=== PATIENT | male | born 2005 | race Caucasian/White ===

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

== ENCOUNTER 2024-07-01 17:52 | Emergency (ER) | payer OTHER, SELFPAY ==
[2024-07-01 18:01] VITALS: BP 138/77; PULSE 94; RESP 16; TEMP 36.3; O2SAT 97; BMI 34.9
--- NOTE | 2024-07-01 18:11 | ED_ITS ---
HPI - General Adult General Chief complaint: Upper Respiratory Symptoms Stated complaint: Knee pain, headache, dizziness Time Seen by Provider: 07/01/24 19:05 Source: patient Mode of arrival: ambulatory Limitations: no limitations History of Present Illness HPI narrative: Patient is a 19-year-old male with a reported past medical history of asthma presenting to emergency department for evaluation of a nonproductive cough, intermittent headache, nasal congestion with postnasal drip sore throat, body aches pain particularly to the bilateral lower extremities (knees and thighs). Symptom onset 1 day ago. Denies shortness of breath or difficulty breathing, has not needed to use as not tried any OTC medications. Related Data Previous Rx's ?Medication ?Instructions ?Recorded albuterol sulfate 90 mcg/actuation 1 inh inhalation QID PRN shortness 08/11/22 aerosol inhaler of breath or wheezing #8.5 grams azithromycin 250 mg tablet See Rx Instructions PO .COMPLEX #6 08/11/22 tabs codeine 10 mg-guaifenesin 100 mg/5 5 ml PO Q6H PRN cold symptoms #120 08/11/22 mL oral liquid (Guaifenesin AC) mL prednisone 20 mg tablet 40 mg (2 x 20 mg) PO DAILY 08/11/22 inflammation 5 days #10 tabs Allergies Allergy/AdvReac Type Severity Reaction Status Date / Time No Known Allergies Allergy Verified 07/01/24 18:04 Review of Systems Review of Systems: Yes all other systems are reviewed and are negative [facility] Past Medical History Attestation statement: The following information was validated with the patient. Source: old records reviewed Social History Social History Advance Directives: No Advance Directives Information Provided: Yes Do you have a plan to hurt others: No Plan Physical Exam ED Vital Signs: Vital Signs - 24 hr 07/01/24 18:01 07/01/24 20:19 Temperature 97.3 F 97.7 F Pulse Rate 94 77 Respiratory Rate 16 16 Blood Pressure 138/77 121/64 Pulse Oximetry 97 98 Oxygen Delivery Method Room Air Room Air BMI result Body Mass Index 34.9 Appearance: Alert.?Oriented to person, place and time. No acute di stress.?Normal affect. Eyes: Pupils equal, round and reactive to light.? EOMI No nystagmus. ENT: Pharynx mildly erythematous. No hypertrophy or exudates. No trismus. No drooling. Uvula is midline. Neck: Normal inspection.? Neck supple.??No cervical adenopathy CVS: Heart sounds normal. Normal heart rate and rhythm.? Pulses normal.?? Respiratory: No respiratory distress.? Lung sounds clear to auscultation bilaterally?? Abdomen: Soft and non-tender. Normoactive bowel sounds. Skin: Skin warm and dry.? Normal skin color.? Extremities: No lower extremity edema.? No calf ttp?no obvious deformities to the bilateral knees, no erythema warmth or effusions. Full range of motion to the lower extremities. 2+ DP/PT pulse bilaterally. Neuro: Moves all extremities spontaneously. Sensation intact bilaterally. CN II- XII intact. No focal neuro deficits. Ambulates with normal steady gait. Course Course Course Narrative: This is a rapid medical exam performed by Candy Vang PA-C. The patient is a 19-year-old male with a history of asthma, who presents with cough and cold symptoms x1 day. Associated headache, dizziness, nasal congestion, postnasal drip, sore throat and knee pain. On exam, the patient has nonlabored respirations, he is well in appearance. We will order a viral panel. The pat ient is stable and can return to the waiting room pending his full assessment. Medical Decision Making Medical Decision Making MDM Narrative: Patient is a this is a 19-year-old male presenting for evaluation of upper respiratory symptoms. COVID-19 /influenza/RSV testing negative. Not consistent with RPA/CLINICAL SUPPORT NURSE. At this time history and physical exam not consistent with ACS/PE/pneumonia. Does not appear consistent with acute asthma exacerbation. Suspect this is likely a viral illness Well-appearing, nontoxic, afebrile, no tachycardia or tachypnea/hypoxia. Speaking clear full sentences, ambulatory with steady gait. Discussed conservative treatment including rest, hydration, Tylenol/ibuprofen as needed for fever and body aches, saline nasal spray, humidifier, [id number] cold medication. Advised to follow-up with primary care provider as needed, discussed reasons to return back to the emergency department. All questions were answered. Patient discharged home in stable condition. Provided with a return to work/school note. Offered Tamiflu Offered monoclonal antibody Differential Diagnosis Differential Diagnoses: The differential diagnosis associated with the presentation includes ( See narrative above) Admission/Observation Consideration of admission/observation: Escalation of care including admission/observation considered ( see narrative above) Lab Data MDM Lab Attestation statement: I reviewed the patient's lab results. ( see narrative above) Labs: Lab Results 07/01/24 Range/Units 18:35 Influenza Type A (PCR) NEGATIVE (Negative) Influenza Type B (PCR) NEGATIVE (Negative) RSV RNA Qual (PCR) NEGATIVE (Negative) SARS-CoV-2 RNA (RT-PCR) NEGATIVE (Negative) Independent Historian Clinical information obtained from an independent historian. History obtained from or confirmed by: Parent External Record Review External record reviewed: Outpatient record Prescription Management I considered prescription management with: Pain Medication ( acetaminophen/ibuprofen) Discharge Plan Discharge Clinical Impression: Upper respiratory infection Patient Disposition: Home, Self-Care Instructions: Upper Respiratory Infection (ED), Viral Syndrome (ED) Additional Instructions: Be sure to rest, stay well hydrated drinking plenty of fluids, eat small frequent meals. Tylenol/ibuprofen can be used as needed for fever/pain. [id number] cold medications may be helpful as well for symptoms. Saline nasal spray, humidifier may be helpful for nasal congestion. You may return to the emergency department with any new or worsening symptoms or concerns. Follow-up with your primary care provider as needed. Should remain out of school/ work until symptoms have resolved and have been without a fever for 24 hours without the use of Tylenol or ibuprofen. Prescriptions: No Action azithromycin 250 mg tablet See Rx Instructions .ROUTE .COMPLEX Qty: 6 0RF Rx Instructions: For 250 mg dose pack: take 500 mg today (day 1), then 250 mg for 4 days (days 2-5) prednisone 20 mg tablet 40 mg PO DAILY 5 Days Qty: 10 0RF albuterol sulfate 90 mcg/actuation HFA aerosol inhaler 1 inh inhalation QID PRN (Reason: shortness of breath or wheezing) Qty: 8.5 0RF codeine-guaifenesin [Guaifenesin AC] 10-100 mg/5 mL liquid 5 ml PO Q6H PRN (Reason: cold symptoms) Qty: 120 0RF Referrals: Physician,Unknown J [Primary Care Provider] - Stand Alone Forms: Work/School Release Print Language: Hungarian
[2024-07-01 19:25] LABS: Influenza A PCR NEGATIVE (Negative); Influenza B PCR NEGATIVE (Negative); Resp Syncy Virus RNA Qual PCR NEGATIVE (Negative); SARS COV2 PCR INHOUSE NEGATIVE (Negative)
[2024-07-01 20:19] VITALS: BP 121/64; PULSE 77; RESP 16; TEMP 36.5; O2SAT 98
[2024-07-01 21:14] VITALS: BP 121/64; PULSE 77; RESP 16; TEMP 36.5; O2SAT 98
== END 2024-07-01 21:15 | disposition home or self-care (01) ==
PROVIDERS: Physician Assistant Medical; Emergency Provider Emergency Medicine Emergency Medical Services
DX: J06.9 Acute upper respiratory infection, unspecified (principal); R09.81 Nasal congestion; R05.9 Cough, unspecified; M79.10 Myalgia, unspecified site; Z03.818 Encounter for observation for suspected exposure to other biological agents ruled out
CPT/HCPCS: 0241U; 99283

== ENCOUNTER 2024-07-11 00:23 | Emergency (ER) | payer OTHER, SELFPAY ==
[2024-07-11 00:38] VITALS: BP 134/84; PULSE 98; RESP 18; TEMP 36.7; O2SAT 98; BMI 33.4
[2024-07-11 02:22] LABS: MANUAL DIFF FLAG NO
[2024-07-11 02:24] LABS: Basophils Absolute Auto 0.1 X10*3/uL (0.0-0.2); Basophils Percent Auto 0.7 % (0-2); Eosinophils Absolute Auto 0.2 X10*3/uL (0.0-0.4); Eosinophils Percent Auto 2.2 % (0-4); Hematocrit 46.9 % (42.0-52.0); Hemoglobin 16.4 g/dl (14.0-18.0); Imm Gran Abs Auto 0.02 X10*3/uL (0.00-0.03); Imm Gran Pct Auto 0.2 % (0.0-0.4); Lymphocytes Absolute Auto 3.2 X10*3/uL (1.2-4.9); Mean Corpuscular Hemoglobin 28.8 pg (27.0-33.0); Mean Corpuscular Volume 82.4 fL (80.0-98.0); Mean Platelet Volume 12.2 fL (9.4-12.4); Monocytes Absolute Auto 0.7 X10*3/uL (0.1-1.2); Neutrophils Absolute Auto 4.6 x10*3/uL (2.0-8.3); Neutrophils Percent Auto 52.9 % (45-73); Platelet Count 228 X10*3/uL (160-400); Red Blood Count 5.69 X10*6/uL (4.60-5.80); Red Cell Distribution Width 12.7 % (11.0-16.0); White Blood Count 8.7 X10*3/uL (4.8-10.8)
[2024-07-11 02:33] LABS: Appearance Urine Clear; Color Urine Dark Yellow; Glucose Urine UA Negative (Negative); Leukocyte Esterase Urine Negative (Negative); Nitrite Urine Negative (Negative); PH 5.5 (5.0-9.0); Specific Gravity - Urine 1.025 (1.005-1.025); Urine Blood Negative (Negative); Urine Ketones 40 mg/dL (Negative); Urine Protein Trace mg/dL (Neg-Trace)
[2024-07-11 02:48] LABS: Alanine Aminotransferase 67 U/L (0-40); Anion Gap 17 (12-20); Aspartate Amino Transferase 35 U/L (5-37); Bilirubin Total 1.1 mg/dL (0.0-1.0); Blood Urea Nitrogen 13 mg/dL (9-16); Calcium 10.1 mg/dL (8.4-10.2); Carbon Dioxide 25 mmol/L (22-29); Chloride 105 mmol/L (96-108); Creatinine Clr Calc Pharmacy 132.9; Estimated Glomerular Filt Rate > 60; Glucose Random 87 mg/dL (60-115); Lipase 15 U/L (8-78); Potassium 4.3 mmol/L (3.3-5.1); Sodium 143 mmol/L (135-145); Total Protein 8.3 g/dL (6.5-8.0)
[2024-07-11 03:11] LABS: Alkaline Phosphatase 72 U/L (39-117)
[2024-07-11 04:00] VITALS: BP 127/88; PULSE 85; RESP 20; TEMP 36.9; O2SAT 99
--- NOTE | 2024-07-11 04:57 | ED.ABDPAIN ---
HPI - Abdominal Pain General Chief Complaint: Abdominal Pain Stated Complaint: abdominal pain Time Seen by Provider: 07/11/24 04:41 Source: patient Mode of arrival: ambulatory Limitations: no limitations History of Present Illness ED Provider: Dr. Pack HPI narrative: Patient is a 19 yo male with no medical history who presents with lower abdominal pain after eating at work. No fever, no nausea or vomiting. Related Data Previous Rx's ?Medication ?Instructions ?Recorded albuterol sulfate 90 mcg/actuation 1 inh inhalation QID PRN shortness 08/11/22 aerosol inhaler of breath or wheezing #8.5 grams azithromycin 250 mg tablet See Rx Instructions PO .COMPLEX #6 08/11/22 tabs codeine 10 mg-guaifenesin 100 mg/5 5 ml PO Q6H PRN cold symptoms #120 08/11/22 mL oral liquid (Guaifenesin AC) mL prednisone 20 mg tablet 40 mg (2 x 20 mg) PO DAILY 08/11/22 inflammation 5 days #10 tabs naproxen 500 mg tablet (Naprosyn) 500 mg PO BID #20 tabs 07/11/24 Allergies Allergy/AdvReac Type Severity Reaction Status Date / Time No Known Allergies Allergy Verified 07/11/24 00:43 Review of Systems Review of Systems Yes all other systems are reviewed and are negative Denies Sensory deficit (Neuro) PMFSH Social History Social History Smoked in Last 30 Days: No Use of substances other than those prescribed or required for medical reasons: No Advance Directives: No Advance Directives Information Provided: Yes Do you have a plan to hurt others: No Plan Physical Exam ED Vital Signs: Vital Signs - 24 hr 07/11/24 00:38 07/11/24 04:00 07/11/24 05:02 Temperature 98.1 F 98.4 F 98.0 F Pulse Rate 98 85 88 Respiratory Rate 18 20 15 Blood Pressure 134/84 127/88 120/77 Pulse Oximetry 98 99 97 Oxygen Delivery Method Room Air Room Air Room Air 07/11/24 05:04 Temperature 98.0 F Pulse Rate 88 Respiratory Rate 15 Blood Pressure 120/77 Pulse Oximetry 97 Oxygen Delivery Method Room Air BMI result Body Mass Index 33.4 Const General: healthy appearing Nutritional Appearance: average body habitus Orientation/consciousness: oriented to person and patient oriented x3 Limitations: no limitations HENMT Head: Yes normal to inspection Ears: external ears normal General nose exam: Normal external nose present Mouth: Normal oral and palatal mucosa present and oropharynx normal Throat: Yes posterior oropharynx normal Eyes General: appearance normal, both eyes and all related structures Neck Neck: Yes normal visual inspection Chest Chest palpation & inspection: normal inspection of the chest Resp Auscultation: clear to auscultation bilaterally Cardio Jugular venous distension: no JVD Rate: regular rate Rhythm: regular rhythm Heart sounds: S1 normal heart sound present and S2 normal heart sound present GI Other: mild left lower to suprapubic pain, no guarding nor rebound Auscultation: normal bowel sounds General: Yes no CVA tenderness Back/Spine/Pelvis Back: no CVA tenderness Skin General skin exam: no rashes or lesions noted Neuro General: oriented to person and patient oriented x3 Cranial nerves: Yes CN's II-XII intact bilaterally Motor exam (neuro): 5/5 motor strength present throughout Sensory Exam: No Sensory deficit (Neuro) Extrem General: Yes normal to inspection Psych Appearance: grossly normal Course Reevaluation(s) Reevaluation #1: normal WBC, normal labs, urine normal. Will treat pain with antiinflammatories Time: 05:01 Medical Decision Making Differential Diagnosis Differential Diagnoses: The differential diagnosis associated with the presentation includes (appendicitis, UTI, diverticulitis, colic) Admission/Observation Consideration of admission/observation: Escalation of care including admission/observation considered (upon arrival patient considered for admission) Lab Data 07/11/24 02:18 07/11/24 02:18 Labs: Lab Results 07/11/24 07/11/24 Range/Units 02:18 02:26 WBC 8.7 (4.8-10.8) X10*3/uL RBC 5.69 (4.60-5.80) X10*6/uL Hgb 16.4 (14.0-18.0) g/dl Hct 46.9 (42.0-52.0) % MCV 82.4 (80.0-98.0) fL MCH 28.8 (27.0-33.0) pg MCHC 35.0 (31.0-36.0) g/dl RDW 12.7 (11.0-16.0) % Plt Count 228 (160-400) X10*3/uL MPV 12.2 (9.4-12.4) fL Immature Gran % (Auto) 0.2 (0.0-0.4) % Neut % (Auto) 52.9 (45-73) % Lymph % (Auto) 36.0 (20-40) % [place] % (Auto) 8.0 (2-11) % Eos % (Auto) 2.2 (0-4) % Baso % (Auto) 0.7 (0-2) % Lymph # (Auto) 3.2 (1.2-4.9) X10*3/uL [place] # (Auto) 0.7 (0.1-1.2) X10*3/uL Eos # (Auto) 0.2 (0.0-0.4) X10*3/uL Baso # (Auto) 0.1 (0.0-0.2) X10*3/uL Abs Immat Gran (auto) 0.02 (0.00-0.03) X10*3/uL Absolute Neuts (auto) 4.6 (2.0-8.3) x10*3/uL Absolute Nucleated RBC 0.000 (0.0-0.012) X10*3/uL Nucleated RBC % (auto) 0.0 (0.0-0.2) /100WBC Sodium 143 (135-145) mmol/L Potassium 4.3 (3.3-5.1) mmol/L Chloride 105 (96-108) mmol/L Carbon Dioxide 25 (22-29) mmol/L Anion Gap 17 (12-20) BUN 13 (9-16) mg/dL Creatinine 1.07 (0.5-1.4) mg/dL Estim Creat Clear Calc 132.9 Estimated GFR > 60 Random Glucose 87 (60-115) mg/dL Calcium 10.1 (8.4-10.2) mg/dL Total Bilirubin 1.1 H (0.0-1.0) mg/dL AST 35 (5-37) U/L ALT 67 H (0-40) U/L Alkaline Phosphatase 72 (39-117) U/L Total Protein 8.3 H (6.5-8.0) g/dL Albumin 5.0 (3.5-5.0) g/dL Lipase 15 (8-78) U/L Urine Color Dark Yellow Urine Appearance Clear Urine pH 5.5 (5.0-9.0) Ur Specific [place] 1.025 (1.005-1.025) Urine Protein Trace (Neg-Trace) mg/dL Urine Glucose (UA) Negative (Negative) mg/dL Urine Ketones 40 (Negative) mg/dL Urine Blood Negative (Negative) Urine Nitrite Negative (Negative) Ur Leukocyte Esterase Negative (Negative) Independent Historian Clinical information obtained from an independent historian. History obtained from or confirmed by: Parent Tests considered The following testing was considered but not selected: CT of abdomen considered but labs WBC normal, exam soft nonfocal Prescription Management I considered prescription management with: Antibiotic (no UTI seen, no evidence of diverticulitis) Medications Administered Discontinued Medications Generic Name Dose Route Start Last Admin Trade Name Freq PRN Reason Stop Dose Admin Naproxen 500 mg 07/11/24 04:57 07/11/24 05:01 Naproxen 500 Mg Tablet PO 07/11/24 04:58 500 mg ONCE ONE Administration Discharge Plan Discharge Clinical Impression: Abdominal pain Patient Disposition: Home, Self-Care Instructions: Abdominal Pain (ED) Prescriptions: New naproxen [Naprosyn] 500 mg tablet 500 mg PO BID Qty: 20 0RF No Action azithromycin 250 mg tablet See Rx Instructions .ROUTE .COMPLEX Qty: 6 0RF Rx Instructions: For 250 mg dose pack: take 500 mg today (day 1), then 250 mg for 4 days (days 2-5) prednisone 20 mg tablet 40 mg PO DAILY 5 Days Qty: 10 0RF albuterol sulfate 90 mcg/actuation HFA aerosol inhaler 1 inh inhalation QID PRN (Reason: shortness of breath or wheezing) Qty: 8.5 0RF codeine-guaifenesin [Guaifenesin AC] 10-100 mg/5 mL liquid 5 ml PO Q6H PRN (Reason: cold symptoms) Qty: 120 0RF Referrals: Physician,Unknown J [Primary Care Provider] - 5 days Interventions: ED Discharge Assessment Last Done: 07/11/24 05:04 Print Language: Yakut
[2024-07-11] MEDS: NaPROXEN 500 MG TABLET PO (05:01)
[2024-07-11 05:02] VITALS: BP 120/77; PULSE 88; RESP 15; TEMP 36.7; O2SAT 97
[2024-07-11 05:04] VITALS: BP 120/77; PULSE 88; RESP 15; TEMP 36.7; O2SAT 97
== END 2024-07-11 05:09 | disposition home or self-care (01) ==
PROVIDERS: Emergency Provider Emergency Medicine
DX: R10.30 Lower abdominal pain, unspecified (principal); Z79.899 Other long term (current) drug therapy
CPT/HCPCS: 36415; 80053; 81003; 83690; 85025; 99283; 99284

== ENCOUNTER 2024-07-15 16:25 | Emergency (ER) | payer OTHER, SELFPAY ==
[2024-07-15 16:49] VITALS: BP 141/86; PULSE 89; RESP 18; TEMP 37; O2SAT 97; BMI 33.5
--- NOTE | 2024-07-15 16:57 | ED.GENADULT ---
HPI - General Adult General Chief complaint: General Medical Stated complaint: Dizziness/ leg pain Time Seen by Provider: 07/15/24 22:05 Source: patient Limitations: language barrier History of Present Illness ED Provider: Candy Vang PA-C HPI narrative: Patient is a 19 year old male with a complaint of b/l villeda pain. Patient states this has been ongoing x3 weeks. It starts at his knee and goes down to the bottom of his villeda. He states that this occurred when he was younger as well, and the provider told him it was growing pains. He did not have any trauma to the knee or villeda, denies skin lesions/rashes, and denies fever/chills. He mentions working long hours and that it gets worse while working. He does a lot of bending and lifting at his job. Patient still able to ambulate. Has not found any alleviating factors. Patient also mentions having a headache since 4pm today. He denies head trauma, visual changes, and other upper respiratory symptoms. Related Data Previous Rx's ?Medication ?Instructions ?Recorded albuterol sulfate 90 mcg/actuation 1 inh inhalation QID PRN shortness 08/11/22 aerosol inhaler of breath or wheezing #8.5 grams azithromycin 250 mg tablet See Rx Instructions PO .COMPLEX #6 08/11/22 tabs codeine 10 mg-guaifenesin 100 mg/5 5 ml PO Q6H PRN cold symptoms #120 08/11/22 mL oral liquid (Guaifenesin AC) mL prednisone 20 mg tablet 40 mg (2 x 20 mg) PO DAILY 08/11/22 inflammation 5 days #10 tabs naproxen 500 mg tablet (Naprosyn) 500 mg PO BID #20 tabs 07/11/24 Allergies Allergy/AdvReac Type Severity Reaction Status Date / Time No Known Allergies Allergy Verified 07/15/24 16:52 Review of Systems Review of Systems: Yes all other systems are reviewed and are negative Constitutional: Constitutional: Denies body ache(s), Denies chills, Denies fatigue, Denies fever(s), Reports headache(s) and Denies weakness Eyes: Eyes: Denies blurry vision, Denies change in vision, Denies eye discharge and Denies eye pain ENT: Denies dizziness, Reports headache(s), Denies post nasal drip, Denies tinnitus and Denies sore throat Cardiovascular: Cardiovascular: Denies Abdominal Distension, Denies chest pain, Denies syncope, Denies leg edema, Denies lightheadedness, Denies palpitations and Denies dyspnea Respiratory: Respiratory: Denies cough and Denies dyspnea Gastrointestinal: Gastrointestinal: Denies abdominal pain, Denies change in bowel habits, Denies constipation, Denies diarrhea, Denies nausea and Denies vomiting Genitourinary: Genitourinary: Denies hematuria, Denies urinary frequency and Denies urinary urgency Musculoskeletal: Musculoskeletal: Denies back pain, Denies deformity, Reports arthralgias (b/l knee), Denies joint swelling, Denies numbness, Denies stiffness and Denies tingling Integumentary/Breasts: Skin/Breast: Denies lesions and Denies rash Neurologic: Denies burning sensations, Denies dizziness, Denies syncope, Reports headache(s), Denies lack of coordination, Denies numbness, Denies tingling and Denies weakness Psychiatric: Psychiatric: Denies homicidal ideation and Denies suicidal ideation Endocrine: Endocrine: Denies fatigue and Denies palpitations [facility] Past Medical History Attestation statement: The following information was validated with the patient. Social History Social History Advance Directives: No Advance Directives Information Provided: No Physical Exam ED Vital Signs: Vital Signs - 24 hr 07/15/24 22:07 07/16/24 00:23 07/16/24 01:39 Temperature 98.3 F 97.9 F 97.9 F Pulse Rate 73 81 81 Respiratory Rate 13 17 17 Blood Pressure 132/71 121/62 121/62 Pulse Oximetry 98 98 98 Oxygen Delivery Method Room Air Room Air Room Air BMI result Body Mass Index 33.5 Const General: cooperative, healthy appearing, comfortable, no acute distress and well developed; No anxious, diaphoretic or ill appearing Nutritional Appearance: obese Orientation/consciousness: patient oriented x3 Limitations: no limitations and language barrier (frisian speaking) [facility] Head: Yes normal to inspection, Yes normocephalic and Yes atraumatic Eyes General: appearance normal, both eyes and all related structures Visual Barrett: normal visual barrett by confrontation Alignment and Position: alignment normal and position normal Periorbital: periorbital findings normal Eyelids: Yes eyelids normal Conjunctivae: conjunctivae normal Sclerae: sclerae normal Corneas: corneas normal Pupils: Equal, round and reactive pupils present EOM: EOMs intact bilaterally Neck Neck: Yes normal visual inspection, Yes full ROM and Yes no meningeal signs Resp Effort & Inspection: normal respiratory effort, able to speak in complete sentences, no audible wheezes, no cough, not labored and no use of accessory muscles Auscultation: clear to auscultation bilaterally Cardio Jugular venous distension: no JVD Rate: regular rate Rhythm: regular rhythm Heart sounds: S1 normal heart sound present and S2 normal heart sound present GI Inspection: Yes normal to inspection and No distended Palpation (GI): Soft to palpation, not firm, nontender, no guarding and not rigid Back/Spine/Pelvis Thoracic/Lumbar Spine: thoracic and lumbar spine normal to inspection Skin General skin exam: no rashes or lesions noted Trauma: no lacerations or abrasions Neuro General: patient oriented x3, moves all extremities, no meningeal signs, no focal motor deficits and CN's II-XI intact bilaterally Cranial nerves: Yes CN's II-XII intact bilaterally, Yes Equal, round and reactive pupils present and Yes Bilaterally intact EOM present Cognition (Neuro): normal cognition Extrem General: Yes normal to inspection, Yes full ROM, Yes capillary refill normal, Yes no joint enlargement, No clubbing, No cyanosis and No edema Right lower extremity: full ROM, no joint enlargement, knee Details: tenderness Location: of the patella and normal ROM; no swelling, no ecchymosis, no deformity and no unusual warmth and lower leg Details: tenderness (villeda); no erythema, no localized swelling, no ecchymosis, no deformity and no unusual warmth; no cyanosis and no edema Left lower extremity: full ROM, no joint enlargement, knee Details: tenderness Location: of the patella and normal ROM; no swelling, no ecchymosis, no deformity and no unusual warmth and lower leg Details: tenderness (villeda) and no edema; no erythema, no localized swelling, no ecchymosis, no deformity and no unusual warmth; no cyanosis and no edema Psych Other: calm and cooperative Appearance: grossly normal Mental Status: mental status grossly normal Speech and movement: Normal speech and movement present and Clear speech present Affect: normal affect Attitude: cooperative Thought process: Normal thought process present Thought content: Normal thought content present Insight: Good insight present (Psych) Judgement: Good judgement present (Psych) Course Course Course Narrative: This is a rapid medical exam performed by Anuel Churchill NP: Additional HPI, ROS, PE not included below will be deferred to primary provider. Patient is a 19-year-old male presenting with complaint of headache, fatigue, dizziness since this morning. Plan: strep and viral swabs Medical Decision Making Medical Decision Making MDM Narrative: I Candy Vang PA-C have personally assessed and manage the patient, Marichuy CASTELLANOS observed and helped to formulate the documentation Patient is a 19 year old male with a complaint of b/l villeda pain. Patient states this has been ongoing x3 weeks. It starts at his knee and goes down to the bottom of his villeda. He states that this occurred when he was younger as well, and the provider told him it was growing pains. He did not have any trauma to the knee or villeda, denies skin lesions/rashes, and denies fever/chills. He mentions working long hours and that it gets worse while working. He does a lot of bending and lifting at his job. Patient still able to ambulate. Has not found any alleviating factors. Patient also mentions having a headache since 4pm today. He denies head trauma, visual changes, and other upper respiratory symptoms. DDx: villeda splints, muscle cramps from electrolyte abnormality, tendonitis, DVT, OA/joint issues, muscle strain/overuse Plan: Given that the patient does repetitive movements at his job, it is possible that he is experiencing tendonitis. It is also possible that he has an electrolyte abnormality, as he c/o muscle cramps as well as headaches. Will assess with CMP. It is also possible that he has OA/joint issues given that his pain begins in the knee and he states it comes from within the bone in his villeda. Given his age, I think OA is unlikely. Patient could be suffering from joint issues, as he was also seen for this when he was a child. Will assess with imaging. Considered DVT, however given the timeline of his complaint, the fact that it is bilateral, and the lack of swelling in the legs, I think this is unlikely. Will defer d-dimer at this time. Also considered villeda splints and muscle strain/overuse, although patient denies walking long distances, running, and hiking, therefore I think this is unlikely. Per Candy Vang PA-C In regard to the dizziness, on my exam, the patient has serous otitis, sent with the instructions for Zyrtec. No nystagmus to suggest vertigo, furthermore, his symptoms are minimal they are currently resolved. In regard to the bilateral knee pain, he has full flexion and extension, there has been no trauma to suggest fracture or dislocation, there was no deformity, there was no overlying erythema, to suggest a septic joint. He is a young healthy individual, he can follow up with his primary care provider, his complaints do not necessitate further emergent evaluation. Screening labs were obtained from triage, there was no underlying organic cause for his dizziness i.e. anemia, dehydration, electrolyte abnormality I have independently reviewed the following tests: Labs: No leukocytosis, not anemic, no electrolyte abnormality, viral panel negative Lab Data 07/15/24 21:37 07/15/24 21:37 Labs: Lab Results 07/15/24 07/15/24 Range/Units 17:55 21:37 WBC 7.8 (4.8-10.8) X10*3/uL RBC 5.68 (4.60-5.80) X10*6/uL Hgb 16.3 (14.0-18.0) g/dl Hct 46.6 (42.0-52.0) % MCV 82.0 (80.0-98.0) fL MCH 28.7 (27.0-33.0) pg MCHC 35.0 (31.0-36.0) g/dl RDW 12.9 (11.0-16.0) % Plt Count 220 (160-400) X10*3/uL MPV 12.3 (9.4-12.4) fL Immature Gran % (Auto) 0.1 (0.0-0.4) % Neut % (Auto) 53.3 (45-73) % Lymph % (Auto) 34.4 (20-40) % Jefferson % (Auto) 8.5 (2-11) % Eos % (Auto) 3.1 (0-4) % Baso % (Auto) 0.6 (0-2) % Lymph # (Auto) 2.7 (1.2-4.9) X10*3/uL Jefferson # (Auto) 0.7 (0.1-1.2) X10*3/uL Eos # (Auto) 0.2 (0.0-0.4) X10*3/uL Baso # (Auto) 0.1 (0.0-0.2) X10*3/uL Abs Immat Gran (auto) 0.01 (0.00-0.03) X10*3/uL Absolute Neuts (auto) 4.1 (2.0-8.3) x10*3/uL Absolute Nucleated RBC 0.000 (0.0-0.012) X10*3/uL Nucleated RBC % (auto) 0.0 (0.0-0.2) /100WBC Sodium 140 (135-145) mmol/L Potassium 4.1 (3.3-5.1) mmol/L Chloride 104 (96-108) mmol/L Carbon Dioxide 26 (22-29) mmol/L Anion Gap 14 (12-20) BUN 11 (9-16) mg/dL Creatinine 0.93 (0.5-1.4) mg/dL Estim Creat Clear Calc 153.0 Estimated GFR > 60 Random Glucose 91 (60-115) mg/dL Calcium 10.2 (8.4-10.2) mg/dL Total Bilirubin 0.8 (0.0-1.0) mg/dL AST 31 (5-37) U/L ALT 70 H (0-40) U/L Alkaline Phosphatase 79 (39-117) U/L Total Protein 7.9 (6.5-8.0) g/dL Albumin 4.7 (3.5-5.0) g/dL Influenza Type A (PCR) NEGATIVE (Negative) Influenza Type B (PCR) NEGATIVE (Negative) RSV RNA Qual (PCR) NEGATIVE (Negative) SARS-CoV-2 RNA (RT-PCR) NEGATIVE (Negative) S. pyogenes GrpA LUIS Negative (Negative) Discharge Plan Discharge Clinical Impression: Dizziness, Bilateral leg pain Patient Disposition: Home, Self-Care Instructions: Dizziness (ED), Leg Pain (ED) Additional Instructions: You had no lab abnormalities, the viral panel was negative. You were found to have fluid in your inner ear, this can cause dizziness. Use [id number] Zyrtec daily for the next 2-3 weeks. In regard to your ongoing leg pain, your exam was unremarkable. You need further outpatient workup by primary care. In the meantime, make sure you have good supportive shoes such as running sneakers, given you are on your feet a lot at work. This should help support your knee joints. Exercise and weight loss are important as well, having extra weight puts strain on your joints. You can use [id number] ibuprofen 600 mg taken every 6 hours as needed for your knee discomfort. Again, you need to make an appointment and follow up with your primary care provider. Prescriptions: No Action azithromycin 250 mg tablet See Rx Instructions .ROUTE .COMPLEX Qty: 6 0RF Rx Instructions: For 250 mg dose pack: take 500 mg today (day 1), then 250 mg for 4 days (days 2-5) prednisone 20 mg tablet 40 mg PO DAILY 5 Days Qty: 10 0RF albuterol sulfate 90 mcg/actuation HFA aerosol inhaler 1 inh inhalation QID PRN (Reason: shortness of breath or wheezing) Qty: 8.5 0RF codeine-guaifenesin [Guaifenesin AC] 10-100 mg/5 mL liquid 5 ml PO Q6H PRN (Reason: cold symptoms) Qty: 120 0RF naproxen [Naprosyn] 500 mg tablet 500 mg PO BID Qty: 20 0RF Stand Alone Forms: Work/School Release Interventions: ED Discharge Assessment Last Done: 07/16/24 01:39 Discharge Date/Time: 07/16/24 01:40 Print Language: Bermudian
[2024-07-15 18:20] LABS: IDNOW Serial# 58CA691E; Strep A Nucleic Acid Negative (Negative)
[2024-07-15 18:39] LABS: Influenza A PCR NEGATIVE (Negative); Influenza B PCR NEGATIVE (Negative); Resp Syncy Virus RNA Qual PCR NEGATIVE (Negative); SARS COV2 PCR INHOUSE NEGATIVE (Negative)
[2024-07-15 21:31] VITALS: BP 130/70; PULSE 87; RESP 20; TEMP 36.8; O2SAT 99
[2024-07-15 21:41] LABS: MANUAL DIFF FLAG NO
[2024-07-15 21:43] LABS: Basophils Absolute Auto 0.1 X10*3/uL (0.0-0.2); Basophils Percent Auto 0.6 % (0-2); Eosinophils Absolute Auto 0.2 X10*3/uL (0.0-0.4); Eosinophils Percent Auto 3.1 % (0-4); Hematocrit 46.6 % (42.0-52.0); Hemoglobin 16.3 g/dl (14.0-18.0); Imm Gran Abs Auto 0.01 X10*3/uL (0.00-0.03); Imm Gran Pct Auto 0.1 % (0.0-0.4); Lymphocytes Absolute Auto 2.7 X10*3/uL (1.2-4.9); Lymphocytes Percent Auto 34.4 % (20-40); Mean Corpuscular Hemoglobin 28.7 pg (27.0-33.0); Mean Platelet Volume 12.3 fL (9.4-12.4); Monocytes Absolute Auto 0.7 X10*3/uL (0.1-1.2); Monocytes Percent Auto 8.5 % (2-11); Neutrophils Absolute Auto 4.1 x10*3/uL (2.0-8.3); Neutrophils Percent Auto 53.3 % (45-73); Platelet Count 220 X10*3/uL (160-400); Red Blood Count 5.68 X10*6/uL (4.60-5.80); Red Cell Distribution Width 12.9 % (11.0-16.0); White Blood Count 7.8 X10*3/uL (4.8-10.8)
[2024-07-15 21:57] LABS: Alanine Aminotransferase 70 U/L (0-40); Albumin Level 4.7 g/dL (3.5-5.0); Alkaline Phosphatase 79 U/L (39-117); Anion Gap 14 (12-20); Aspartate Amino Transferase 31 U/L (5-37); Bilirubin Total 0.8 mg/dL (0.0-1.0); Blood Urea Nitrogen 11 mg/dL (9-16); Calcium 10.2 mg/dL (8.4-10.2); Carbon Dioxide 26 mmol/L (22-29); Chloride 104 mmol/L (96-108); Estimated Glomerular Filt Rate > 60; Glucose Random 91 mg/dL (60-115); Potassium 4.1 mmol/L (3.3-5.1); Sodium 140 mmol/L (135-145); Total Protein 7.9 g/dL (6.5-8.0)
[2024-07-15 22:07] VITALS: BP 132/71; PULSE 73; RESP 13; TEMP 36.8; O2SAT 98
[2024-07-16 00:23] VITALS: BP 121/62; PULSE 81; RESP 17; TEMP 36.6; O2SAT 98
[2024-07-16 01:39] VITALS: BP 121/62; PULSE 81; RESP 17; TEMP 36.6; O2SAT 98
== END 2024-07-16 01:40 | disposition home or self-care (01) ==
PROVIDERS: Registered Nurse Emergency; Emergency Provider Emergency Medicine
DX: R42 Dizziness and giddiness (principal); M79.605 Pain in left leg; M79.604 Pain in right leg; Z03.818 Encounter for observation for suspected exposure to other biological agents ruled out; Z79.899 Other long term (current) drug therapy
CPT/HCPCS: 0241U; 36415; 80053; 85025; 87651; 99283